=== PATIENT | male | born 1970 | race Asian ===

== ENCOUNTER → 2016-09-20 | Outpatient (CLI) | payer BC ==
--- NOTE | 2016-09-20 17:58 | RADRPT ---
PROCEDURE: XR Knee. CLINICAL INDICATION: PAIN TECHNIQUE: AP, lateral and oblique view of the right knee were obtained. The images reviewed on a PACS workstation. COMPARISON: 08/23/2013 FINDINGS: The bones appear intact, with no evidence of fracture, erosion, demineralization, or dislocation. Th e alignment of the femorotibial and patellofemoral joints appears normal. No joint space narrowing i s seen. The patient is status post ACL repair. There is a probable small joint effusion. IMPRESSION: 1. Status post anterior cruciate repair. Probable small joint effusion. RPTAT: DD .Gary Vogt MD, MD Date Time Electronically viewed and signed by .Gary Vogt MD, MD on 09/20/2016 17:58 .T/
== END | disposition home or self-care (01) ==
LOC: HKI 09:08
PROVIDERS: ATTEND Orthopaedic Surgery
DX: M25.561 Pain in right knee (principal)
CPT/HCPCS: 73564; G0463